=== PATIENT | female | born 1955 | race American Indian/Alaskan Native ===

== ENCOUNTER 2019-01-03 09:16 | Emergency (ER) | payer MEDICARE, OTHER ==
[2019-01-03] MEDS ORDERED: ASPIRIN PO ONE (09:28)
--- NOTE | 2019-01-03 10:15 | Emergency Department Report ---
- General Chief Complaint: Chest Pain Stated Complaint: CHEST PAIN Time Seen by Provider: 01/03/19 09:47 Source: patient Mode of arrival: Wheelchair Limitations: No Limitations - History of Present Illness Initial Comments: 63-year-old female with history of CHF, 15% EF with AICD, COPD chronically on 3 L O2, presents to ED with 2 day history of fever, cough, anterior chest pain w ith cough, body aches. Reports taking Nyquil for her symptoms. Patient states she did receive flu shot this season, also pneumonia vaccine. Patient reports recent admission 2 weeks ago in [place] due to AICD firing. Patient lives in [place], is here visiting her daughter. Complaint: fever, cough -: days(s) (2) Severity: moderate Consistency: constant Improves With: OTC cold medicine Associated Symptoms: fever, myalgias, sore throat, cough, chest pain (with cough), diarrhea Treatments Prior to Arrival: "cold medicine" - Related Data Previous Rx's Medication Instructions Recorded Last Taken Type Benzonatate [Tessalon Perles] 100 mg PO Q8HR PRN #20 capsule 01/03/19 Unknown Rx traMADol [Ultram] 50 mg PO Q6HR PRN #7 tablet 01/03/19 Unknown Rx Allergies Allergy/AdvReac Type Severity Reaction Status Date / Time No Known Allergies Allergy Unverified 01/03/19 09:26 ED Review of Systems ROS: Stated complaint: CHEST PAIN Other details as noted in HPI Comment: All other systems reviewed and negative Constitutional: fever ENT: throat pain Respiratory: cough Cardiovascular: chest pain (with cough) Gastrointestinal: diarrhea. denies: nausea, vomiting Neurological: headache ED Past Medical Hx - Past Medical History Previous Medical History?: Yes Hx Hypertension: Yes Hx Congestive Heart Failure: Yes Additional medical history: Degenerative disc disease - Surgical History Past Surgical History?: Yes Additional Surgical History: AICD placed 2013 - Social History Smoking Status: Never Smoker Substance Use Type: None - Medications Home Medications: Home Medications Medication Instructions Recorded Confirmed Last Taken Type Benzonatate [Tessalon Perles] 100 mg PO Q8HR PRN #20 capsule 01/03/19 Unknown Rx traMADol [Ultram] 50 mg PO Q6HR PRN #7 tablet 01/03/19 Unknown Rx ED Physical Exam - General Limitations: No Limitations General appearance: alert, in no apparent distress, obese - Head Head exam: Present: atraumatic, normocephalic - Eye Eye exam: Present: normal appearance - ENT ENT exam: Present: mucous membranes moist - Neck Neck exam: Present: normal inspection - Respiratory Respiratory exam: Present: normal lung sounds bilaterally, chest wall tenderness (reproducible chest wall tenderness to bilateral anterior chest). Absent: respiratory distress, wheezes - Cardiovascular Cardiovascular Exam: Present: regular rate, normal rhythm - GI/Abdominal GI/Abdominal exam: Present: soft. Absent: distended, tenderness - Extremities Exam Extremities exam: Absent: pedal edema, calf tenderness - Neurological Exam Neurological exam: Present: alert, oriented X3 - Psychiatric Psychiatric exam: Present: normal affect, normal mood - Skin Skin exam: Present: warm, dry, intact, normal color ED Course Vital Signs 01/03/19 01/03/19 01/03/19 09:27 09:57 10:00 Temperature 98.0 F Pulse Rate 89 80 81 Respiratory 20 13 19 Rate Blood Pressure 125/78 Blood Pressure 116/60 [Right] O2 Sat by Pulse 98 96 Oximetry 01/03/19 01/03/19 01/03/19 10:16 10:30 10:46 Temperature Pulse Rate 99 H 87 95 H Respiratory 21 26 H 18 Rate Blood Pressure 119/78 131/89 135/82 Blood Pressure [Right] O2 Sat by Pulse 98 97 99 Oximetry 01/03/19 01/03/19 01/03/19 11:00 11:16 11:30 Temperature Pulse Rate 75 81 74 Respiratory 15 26 H 20 Rate Blood Pressure 139/79 121/91 121/91 Blood Pressure [Right] O2 Sat by Pulse 100 100 100 Oximetry ED Medical Decision Making - Lab Data Result diagrams: 01/03/19 09:35 01/03/19 09:35 - EKG Data -: EKG Interpreted by Sd EKG shows normal: sinus rhythm, axis, ST-T waves Rate: normal - EKG Data Interpretation: other (IVCD) - Radiology Data Radiology results: report reviewed, image reviewed - Medical Decision Making - chest wall pain on exam - EKG unremarkable - labs normal - O2 sats normal, no resp distress - kevlin chest wall pain due to cough from URI, does not require admission at this time - will d/c home w/ rx for tessalon and ultram - return precautions given - Differential Diagnosis pneumonia, pulm edema, URI, chest wall pain Critical care attestation.: If time is entered above; I have spent that time in minutes in the direct care of this critically ill patient, excluding procedure time. ED Disposition Clinical Impression: URI (upper respiratory infection), Costochondritis Disposition: TO HOME OR SELFCARE Is pt being admited?: No Condition: Stable Instructions: Costochondritis (ED), Upper Respiratory Infection (ED) Prescriptions: Benzonatate [Tessalon Perles] 100 mg PO Q8HR PRN #20 capsule PRN Reason: Cough traMADol [Ultram] 50 mg PO Q6HR PRN #7 tablet PRN Reason: Pain Referrals: KARENA SONG MD [Primary Care Provider] - 3-5 Days Time of Disposition: 11:38
[2019-01-03 10:25] LABS: BUN/Creatinine Ratio 22; Blood Urea Nitrogen 22 mg/dL (7-17); Calcium 10.3 mg/dL (8.4-10.2); Hemolysis Index 162
[2019-01-03 10:27] LABS: Basophils % (Auto) 0.7 % (0.0-1.8); Eosinophils # (Auto) 0.1 K/mm3 (0.0-0.4); Eosinophils % (Auto) 1.5 % (0.0-4.3); Hematocrit 37.4 % (30.3-42.9); Hemoglobin 12.4 gm/dl (10.1-14.3); Lymphocytes # (Auto) 1.6 K/mm3 (1.2-5.4); Lymphocytes % (Auto) 24.4 % (13.4-35.0); Mean Corpuscular HGB Conc 33 % (30-34); Mean Corpuscular Volume 85 fl (79-97); Monocytes # (Auto) 0.5 K/mm3 (0.0-0.8); Monocytes % (Auto) 7.6 % (0.0-7.3); Platelet Count 284 K/mm3 (140-440); Red Blood Count 4.41 M/mm3 (3.65-5.03); Red Cell Distribution Width 18.6 % (13.2-15.2)
--- NOTE | 2019-01-03 11:03 | XRay Report ---
PROCEDURE: XR CHEST 1V AP TECHNIQUE: Chest, one view HISTORY: Chest Pain COMPARISON: None FINDINGS: There is a pacemaker on the left. There is mild to moderate cardiomegaly. There is no pulmonary vascular congestion seen. Lungs are clear. There is no pleural effusion seen. There is no pneumothorax seen. IMPRESSION: No acute abnormality identified. This document is electronically signed by Mireille Bass MD., January 03 2019 11:02:11 AM ET
[2019-01-03] MEDS ORDERED: NORCO 5/325 ONE (11:40)
[2019-01-03 11:46] VITALS: BP 121/91
[2019-01-03] MEDS ORDERED: NORCO 5/325 PO ONE (11:46)
== END 2019-01-03 11:49 | disposition home or self-care (01) ==
LOC: ED 09:16
DX: M94.0 Chondrocostal junction syndrome [Tietze] (principal); J06.9 Acute upper respiratory infection, unspecified; I11.0 Hypertensive heart disease with heart failure; I50.9 Heart failure, unspecified
CPT/HCPCS: 36415; 71045; 80048; 84484; 85025; 93005; 93010